=== PATIENT | female | born 1955 | race African-American/Black ===

== ENCOUNTER 2022-04-20 15:04 | Outpatient (REF) | payer OTHER, SELFPAY ==
--- NOTE | ~2022-04-20 | XR_ITS ---
EXAMINATION: XR LUMBOSACRAL SPINE WITH OBLIQUES CLINICAL INFORMATION: Spondylolisthesis. COMPARISON: None TECHNIQUE: AP, both oblique, and lateral (neutral, flexion and extension) views of the lumbar spine. Lateral view of the lumbosacral junction. FINDINGS: There is bony demineralization. There are moderately large Schmorl's nodes of the T9, T10 and T11 lower endplates. At L2-L3 and L3-L4, there is mild posterior disc space narrowing. At L3-L4, there is a 4 mm anterolisthesis. At L4-L5, there is a 3 mm retrolisthesis. At L5-S1, there is a 5 mm anterolisthesis and moderately severe disc space narrowing. No acute fracture or spondylolisthesis is seen. There is multi-level marked lower thoracic and mild lumbar spondylosis. There is multi-level lumbar facet arthropathy. There are aortoiliac atherosclerotic calcifications. XR/XR lumbar spine 6V w bending IMPRESSION: There is multi-level thoracolumbar degenerative disc disease, spondylosis and facet arthropathy. Degenerative disc disease is most pronounced at L5-S1, where it is marked.
--- NOTE | ~2022-04-20 | XR_ITS ---
EXAMINATION: XR BILATERAL HIPS WITH AP PELVIS CLINICAL INFORMATION: Right hip pain. COMPARISON: None TECHNIQUE: AP view of the pelvis and single views of each hip were obtained. FINDINGS: Bony alignment and mineralization are normal. No fracture or dislocation is seen. Sacroiliac and hip joints are normal. Pubic symphysis is normal. There are multiple bilateral calcified buttock granulomas. There are incompletely characterized degenerative changes of the lumbar spine. XR/XR hip BI w PEL1V IMPRESSION: Normal pelvis and hips.
== END 2022-04-20 15:05 | disposition home or self-care (01) ==
LOC: HO.XRAY 15:04
PROVIDERS: PCP Internal Medicine; Visit Provider Nurse Practitioner Family
DX: M47.817 Spondylosis without myelopathy or radiculopathy, lumbosacral region (principal); M25.551 Pain in right hip; M25.552 Pain in left hip; M43.10 Spondylolisthesis, site unspecified
CPT/HCPCS: 72114; 73521; 99202

== ENCOUNTER → 2022-05-11 15:56 | Outpatient (BNVA) | payer OTHER, SELFPAY | PROVIDERS: PCP Internal Medicine; Visit Provider Nurse Practitioner Family | DX: M47.817 Spondylosis without myelopathy or radiculopathy, lumbosacral region (principal); M43.10 Spondylolisthesis, site unspecified; M51.36 Other intervertebral disc degeneration, lumbar region; M53.3 Sacrococcygeal disorders, not elsewhere classified; M25.551 Pain in right hip; M25.552 Pain in left hip | CPT/HCPCS: Q3014 ==

== ENCOUNTER 2022-10-23 15:17 | Outpatient (REF) | payer OTHER, SELFPAY ==
--- NOTE | ~2022-10-23 | XR_ITS ---
EXAMINATION: XR SACROILIAC JOINTS CLINICAL INFORMATION: Sacroiliac disorders, unspecified. COMPARISON: None available. TECHNIQUE: 3 views of the sacroiliac joints FINDINGS: Mild symmetric sclerosis of the SI joints. No clear erosive changes. No asymmetric widening. No acute fractures or subluxation. No significant soft tissue abnormalities. XR/XR sacroiliac joint min 3V IMPRESSION: Mild symmetric sclerosis of the SI joints.
--- NOTE | ~2022-10-23 | XR_ITS ---
EXAMINATION: XR SHOULDER, RIGHT CLINICAL INFORMATION: Pain. COMPARISON: None available. TECHNIQUE: Four views of the right shoulder. FINDINGS: No acute fractures or subluxation. Mild acromioclavicular and glenohumeral degenerative osteoarthritis. No abnormal soft tissue calcifications. Included portions of the right-sided ribs and right lung are within normal limits. XR/XR shoulder RT min 2V IMPRESSION: No acute fractures or subluxation. Mild degenerative osteoarthritis.
== END 2022-10-23 15:18 | disposition home or self-care (01) ==
LOC: HO.XRAY 15:17
PROVIDERS: PCP Internal Medicine; Visit Provider Nurse Practitioner Family
DX: M25.511 Pain in right shoulder (principal); M25.552 Pain in left hip; M53.3 Sacrococcygeal disorders, not elsewhere classified
CPT/HCPCS: 72202; 73030; 99212

== ENCOUNTER 2022-10-23 15:17 | Outpatient (AMB) | payer OTHER, SELFPAY ==
[2022-10-23 15:27] VITALS: BP 147/87; PULSE 95; O2SAT 98; BMI 35.8
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
== END 2022-10-23 15:40 | disposition home or self-care (01) ==
PROVIDERS: PCP Internal Medicine; Visit Provider Nurse Practitioner Family
DX: M25.511 Pain in right shoulder (principal); M53.3 Sacrococcygeal disorders, not elsewhere classified; M25.552 Pain in left hip; M47.817 Spondylosis without myelopathy or radiculopathy, lumbosacral region
CPT/HCPCS: 99214

== ENCOUNTER 2023-01-25 14:16 | Outpatient (AMB) | payer OTHER, SELFPAY ==
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
[2023-01-25 14:24] VITALS: BP 132/84; PULSE 116; O2SAT 98; BMI 37.5
== END 2023-01-25 14:36 | disposition home or self-care (01) ==
PROVIDERS: PCP Internal Medicine; Visit Provider Nurse Practitioner Family
DX: M25.551 Pain in right hip (principal); M25.552 Pain in left hip; M53.3 Sacrococcygeal disorders, not elsewhere classified; M47.817 Spondylosis without myelopathy or radiculopathy, lumbosacral region
CPT/HCPCS: 99213

== ENCOUNTER → 2023-01-25 14:16 | Outpatient (BNVA) | payer OTHER, SELFPAY | PROVIDERS: PCP Nurse Practitioner Family; Visit Provider Nurse Practitioner Family | DX: M25.551 Pain in right hip (principal); M25.552 Pain in left hip; M53.3 Sacrococcygeal disorders, not elsewhere classified; M47.817 Spondylosis without myelopathy or radiculopathy, lumbosacral region | CPT/HCPCS: 99212 ==

== ENCOUNTER 2023-06-07 14:19 | Outpatient (AMB) | payer OTHER, SELFPAY ==
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
[2023-06-07 14:33] VITALS: BP 129/85; PULSE 99; O2SAT 100; BMI 36.6
== END 2023-06-07 15:06 | disposition home or self-care (01) ==
PROVIDERS: PCP Internal Medicine; Visit Provider Nurse Practitioner Family
DX: M25.551 Pain in right hip (principal); M25.552 Pain in left hip; M53.3 Sacrococcygeal disorders, not elsewhere classified; M47.817 Spondylosis without myelopathy or radiculopathy, lumbosacral region; M54.89 Other dorsalgia; Z91.81 History of falling; M25.562 Pain in left knee
CPT/HCPCS: 99214

== ENCOUNTER 2023-06-07 14:19 | Outpatient (REF) | payer OTHER, SELFPAY ==
--- NOTE | ~2023-06-07 | XR_ITS ---
EXAMINATION: XR THORACIC SPINE XR LUMBAR SPINE XR LEFT KNEE CLINICAL INFORMATION: Back pain, spondylosis without myelopathy or radiculopathy. Pain in left knee. COMPARISON: Sacroiliac joint 10/23/2022. Lumbar spine and bilateral hips and pelvis 04/20/2022. TECHNIQUE: 3 views of the thoracic spine. 4 views of the lumbar spine. 5 views of the left knee. FINDINGS: THORACIC SPINE: Levoscoliosis of thoracic spine with advanced degenerative changes and large predominantly anterior and right-sided osteophytes in the edy-ub-aktjn thoracic spine. Apparent superior and inferior endplate concavities at T10, T11 and T12 vertebral bodies of indeterminate age. Degenerative changes on very limited images of the cervical spine could be evaluated with dedicated cervical spine radiographs. LUMBAR SPINE: Slight rightward curvature of the lumbar spine. Mild degenerative changes in the bilateral sacroiliac joints. Advanced multilevel facet arthritis in the gro-zz-qxuht lumbar spine. Moderate multilevel lumbar spondylosis with multilevel loss of disc space height most notable at L5-S1. Grade 1 anterolisthesis of L4 and L5 and L5 on S1. LEFT KNEE: Moderate joint effusion present. Advanced degenerative changes with narrowing of the patellofemoral and lateral compartments and hypertrophic change. XR/XR thoracic spine 3V IMPRESSION: 1. Levoscoliosis of thoracic spine with advanced degenerative changes and large predominantly anterior and right-sided osteophytes in the ciy-zp-wbktb thoracic spine. 2. Apparent superior and inferior endplate concavities at T10, T11 and T12 vertebral bodies of indeterminate age. 3. Moderate multilevel lumbar spondylosis with multilevel loss of disc space height most notable at L5-S1. 4. Advanced multilevel facet arthritis in the bsq-tf-luqmz lumbar spine. 5. Advanced degenerative changes in the lateral and patellofemoral compartments of the left knee.
--- NOTE | ~2023-06-07 | XR_ITS ---
EXAMINATION: XR THORACIC SPINE XR LUMBAR SPINE XR LEFT KNEE CLINICAL INFORMATION: Back pain, spondylosis without myelopathy or radiculopathy. Pain in left knee. COMPARISON: Sacroiliac joint 10/23/2022. Lumbar spine and bilateral hips and pelvis 04/20/2022. TECHNIQUE: 3 views of the thoracic spine. 4 views of the lumbar spine. 5 views of the left knee. FINDINGS: THORACIC SPINE: Levoscoliosis of thoracic spine with advanced degenerative changes and large predominantly anterior and right-sided osteophytes in the vst-rx-icihy thoracic spine. Apparent superior and inferior endplate concavities at T10, T11 and T12 vertebral bodies of indeterminate age. Degenerative changes on very limited images of the cervical spine could be evaluated with dedicated cervical spine radiographs. LUMBAR SPINE: Slight rightward curvature of the lumbar spine. Mild degenerative changes in the bilateral sacroiliac joints. Advanced multilevel facet arthritis in the ajp-qy-oatba lumbar spine. Moderate multilevel lumbar spondylosis with multilevel loss of disc space height most notable at L5-S1. Grade 1 anterolisthesis of L4 and L5 and L5 on S1. LEFT KNEE: Moderate joint effusion present. Advanced degenerative changes with narrowing of the patellofemoral and lateral compartments and hypertrophic change. XR/XR knee LT 3V IMPRESSION: 1. Levoscoliosis of thoracic spine with advanced degenerative changes and large predominantly anterior and right-sided osteophytes in the upz-lc-xijno thoracic spine. 2. Apparent superior and inferior endplate concavities at T10, T11 and T12 vertebral bodies of indeterminate age. 3. Moderate multilevel lumbar spondylosis with multilevel loss of disc space height most notable at L5-S1. 4. Advanced multilevel facet arthritis in the zgy-wt-hzshl lumbar spine. 5. Advanced degenerative changes in the lateral and patellofemoral compartments of the left knee.
--- NOTE | ~2023-06-07 | XR_ITS ---
EXAMINATION: XR THORACIC SPINE XR LUMBAR SPINE XR LEFT KNEE CLINICAL INFORMATION: Back pain, spondylosis without myelopathy or radiculopathy. Pain in left knee. COMPARISON: Sacroiliac joint 10/23/2022. Lumbar spine and bilateral hips and pelvis 04/20/2022. TECHNIQUE: 3 views of the thoracic spine. 4 views of the lumbar spine. 5 views of the left knee. FINDINGS: THORACIC SPINE: Levoscoliosis of thoracic spine with advanced degenerative changes and large predominantly anterior and right-sided osteophytes in the oga-rl-yscub thoracic spine. Apparent superior and inferior endplate concavities at T10, T11 and T12 vertebral bodies of indeterminate age. Degenerative changes on very limited images of the cervical spine could be evaluated with dedicated cervical spine radiographs. LUMBAR SPINE: Slight rightward curvature of the lumbar spine. Mild degenerative changes in the bilateral sacroiliac joints. Advanced multilevel facet arthritis in the tsr-pk-brdnl lumbar spine. Moderate multilevel lumbar spondylosis with multilevel loss of disc space height most notable at L5-S1. Grade 1 anterolisthesis of L4 and L5 and L5 on S1. LEFT KNEE: Moderate joint effusion present. Advanced degenerative changes with narrowing of the patellofemoral and lateral compartments and hypertrophic change. XR/XR lumbar spine 2-3V IMPRESSION: 1. Levoscoliosis of thoracic spine with advanced degenerative changes and large predominantly anterior and right-sided osteophytes in the xec-zr-ezirl thoracic spine. 2. Apparent superior and inferior endplate concavities at T10, T11 and T12 vertebral bodies of indeterminate age. 3. Moderate multilevel lumbar spondylosis with multilevel loss of disc space height most notable at L5-S1. 4. Advanced multilevel facet arthritis in the pra-dt-lzrbz lumbar spine. 5. Advanced degenerative changes in the lateral and patellofemoral compartments of the left knee.
== END 2023-06-07 14:20 | disposition home or self-care (01) ==
LOC: HO.XRAY 14:19
PROVIDERS: PCP Internal Medicine; Visit Provider Nurse Practitioner Family
DX: M47.817 Spondylosis without myelopathy or radiculopathy, lumbosacral region (principal); M53.3 Sacrococcygeal disorders, not elsewhere classified; M54.89 Other dorsalgia; M25.562 Pain in left knee; Z91.81 History of falling
CPT/HCPCS: 72072; 72100; 73562; 99212

== ENCOUNTER 2023-06-12 15:08 | Outpatient (AMB) | payer OTHER, SELFPAY ==
--- NOTE | 2023-06-12 15:11 | HO.NEPHOV ---
Vital Signs 06/12/23 15:12 Height 5 ft 5 in Weight 219 lb 6 oz BMI 36.5 BP 130/80 Blood Pressure Location Lt brachial Position Sitting Pulse 51 Pulse Source Pulse Oximeter Pulse Oximetry (%) 97 Oxygen Delivery Method Room Air Intake Visit Reasons: CKD/ HTN/ Confirmed Design Draftsman Required: No Accompanied by: Self / Same As Patient Allergies sertraline Allergy (Unknown, Verified 06/12/23 15:16) Hallucinations HPI Comments Details: I would the privilege of seeing Elsie in consultation for chronic kidney disease and hypertension. She is known to have cardiac issues including atrial fibrillation. She takes PPI for a long time. She has not known to have any significant proteinuria. She is history of hepatitis-C which was treated long time ago. She has no in skin rashes, epistaxis, orthostasis, palpitations, paroxysmal nocturnal dyspnea, chest pain, pedal edema, froth or foam in the urine. She has no sensorineural deafness, hematuria or history of excessive nonsteroidal anti-inflammatory medication intake. She had BITA during AFib with RVR but has resolved to baseline. She did not have any new systemic complaints at the time of this office visit [facility] Medical History (Updated 06/12/23 @ 15:12 by Dagoberto Gomez MD) Herpes simplex Spondylolisthesis Hyperlipidemia Cervical radiculopathy Tricuspid regurgitation Generalized osteoarthritis of multiple sites Eczema Hepatitis C Depression Hypertension Anxiety Chronic GERD Fatty liver Vertigo Acoustic neuroma Atrial fibrillation Compression fracture of third lumbar vertebra Back pain due to injury [place] (dyspnea on exertion) Dizziness HFrEF (heart failure with reduced ejection fraction) BITA (acute kidney injury) CAD (coronary artery disease) Surgical History History of appendectomy Family History Mother Diabetes Hypertension CAD (coronary artery disease) Social History Alcohol intake: current Alcohol intake frequency: holidays/special occasions only Patient Tobacco Use Status: Never used Tobacco Physical Exam Vital Signs: Last Vital Signs Pulse 51 06/12/23 15:12 BP 130/80 06/12/23 15:12 Pulse Ox 97 06/12/23 15:12 Oxygen Delivery Method Room Air 06/12/23 15:12 BMI result Body Mass Index 36.5 Const General: comfortable and no acute distress Orientation/consciousness: patient oriented x3 HEENT Head: Yes normocephalic Mouth: Normal oral and palatal mucosa present Eyes EOM: EOMs intact bilaterally Neck Neck: Yes supple Resp Auscultation: clear to auscultation bilaterally Cardio Jugular venous distension: no JVD Rate: regular rate GI Palpation (GI): Soft to palpation Auscultation: normal bowel sounds General: Yes no CVA tenderness Back/Spine/Pelvis Back: no CVA tenderness Skin General skin exam: no rashes or lesions noted Neuro General: patient oriented x3 and moves all extremities Extrem General: Yes no pedal edema Results Reviewed Nephrology Results: Hgb 12.0 g/dl (12.0-16.0) 06/12/23 WBC 4.8 X10*3/uL (4.8-10.8) 06/12/23 Plt Count 233 X10*3/uL (160-400) 06/12/23 Sodium 139 mmol/L (135-145) 06/12/23 Potassium 4.1 mmol/L (3.3-5.1) 06/12/23 Chloride 106 mmol/L (96-108) 06/12/23 Carbon Dioxide 26 mmol/L (22-29) 06/12/23 BUN 15 mg/dL (9-16) 06/12/23 Creatinine 1.23 mg/dL (0.5-1.4) 06/12/23 Calcium 9.0 mg/dL (8.4-10.2) 06/12/23 PTH Intact 83.0 pg/mL (8.7-77.1) H 06/12/23 Assessment & Plan Assessment & Plan (1) CKD (chronic kidney disease) stage 3, GFR 30-59 ml/min: Code(s): N18.30 - Chronic kidney disease, stage 3 unspecified Category: Medical Qualifiers: Chronic kidney disease stage 3 subtype: stage 3a (GFR 45-59) Qualified Code(s): N18.31 - Chronic kidney disease, stage 3a (2) Hypertension: Code(s): I10 - Essential (primary) hypertension Category: Medical Qualifiers: Hypertension type: primary hypertension Qualified Code(s): I10 - Essential (primary) hypertension Plan Elsie has CKD for a long time. She got up BITA when she had AFib with a RVR. Her serum creatinine has settled to baseline. She most likely has vascular disease. Her blood pressure is currently at goal. I have ordered extensive workup including imaging studies, serology and immunology. There is no indication for any renal biopsy now. She maintains good hydration. She avoids nonsteroidal anti-inflammatories. I did not make any medication changes at this office visit. More than 50% time spent discussing about etiologies of CKD, hypertension and management strategies. Time spent retrieving data, patient encounter and documentation 52 minutes. Answered all questions. Follow-up appointment given. Orders: Orders Creatinine 06/12/23 N18.31 - Chronic kidney disease, stage 3a, I10 - Essential (primary) hypertension Anti DNA DS Antibody 06/12/23 N110.26 - Chronic kidney disease, stage 3a, I10 - Essential (primary) hypertension Myeloperoxidase Antibody 06/12/23 - Chronic kidney disease, stage 3a, I10 - Essential (primary) hypertension Proteinase 3 PR3 Antibodies 06/12/23 - Chronic kidney disease, stage 3a, I10 - Essential (primary) hypertension Immunofixation Pnl, Serum 06/12/23 N18 - Chronic kidney disease, stage 3a, I10 - Essential (primary) hypertension Complement C4 06/12/23 N18. - Chronic kidney disease, stage 3a, I10 - Essential (primary) hypertension US renal BI 06/12/23 N18.31 - Chronic kidney disease, stage 3a, I10 - Essential (primary) hypertension US renal doppler 06/12/23 N18 - Chronic kidney disease, stage 3a, I10 - Essential (primary) hypertension Parathyroid Hormone Intact 06/12/23 N18.31 - Chronic kidney disease, stage 3a, I10 - Essential (primary) hypertension Electrolytes 06/12/23 N18.31 - Chronic kidney disease, stage 3a, I10 - Essential (primary) hypertension Calcium 06/12/23 N18. - Chronic kidney disease, stage 3a, I10 - Essential (primary) hypertension Blood Urea Nitrogen 06/12/23 N18. - Chronic kidney disease, stage 3a, I10 - Essential (primary) hypertension Complete Blood Count Auto Diff 06/12/23 N18. - Chronic kidney disease, stage 3a, I10 - Essential (primary) hypertension Complement C3 04/16/24 N18.31 - Chronic kidney disease, stage 3a, I10 - Essential (primary) hypertension Coding Level of Care Code New Pt Level 4 (90239) Diagnoses Stage 3a chronic kidney disease N18.31 Chronic kidney disease stage 3 subtype: stage 3a (GFR 45-59) Primary hypertension I10 Hypertension type: primary hypertension
[2023-06-12 15:12] VITALS: BP 130/80; PULSE 51; O2SAT 97; BMI 36.5
== END 2023-06-12 15:59 | disposition home or self-care (01) ==
LOC: HO.HKAS 15:08
PROVIDERS: PCP Internal Medicine; Visit Provider Internal Medicine Nephrology
DX: N18.31 Chronic kidney disease, stage 3a (principal); I10 Essential (primary) hypertension
CPT/HCPCS: 99204

== ENCOUNTER 2023-06-12 15:08 | Outpatient (REF) | payer OTHER, SELFPAY ==
[2023-06-12 18:54] LABS: MANUAL DIFF FLAG NO
[2023-06-12 19:22] LABS: Basophils Percent Auto 0.8 % (0-2); Eosinophils Absolute Auto 0.2 X10*3/uL (0.0-0.4); Eosinophils Percent Auto 3.7 % (0-4); Hematocrit 38.2 % (37.0-47.0); Imm Gran Abs Auto 0.01 X10*3/uL (0.00-0.03); Imm Gran Pct Auto 0.2 % (0.0-0.4); Lymphocytes Absolute Auto 1.8 X10*3/uL (1.2-4.9); Mean Corpuscular HGB Conc 31.4 g/dl (31.0-35.0); Mean Corpuscular Hemoglobin 26.3 pg (27.0-33.0); Mean Corpuscular Volume 83.6 fL (80.0-98.0); Mean Platelet Volume 12.6 fL (9.4-12.3); Monocytes Absolute Auto 0.4 X10*3/uL (0.1-1.2); Monocytes Percent Auto 7.3 % (2-11); Neutrophils Absolute Auto 2.4 x10*3/uL (2.0-8.3); Platelet Count 233 X10*3/uL (160-400); Red Blood Count 4.57 X10*6/uL (4.20-5.50); Red Cell Distribution Width 15.2 % (11.0-16.0); White Blood Count 4.8 X10*3/uL (4.8-10.8)
[2023-06-12 20:06] LABS: Anion Gap 11 (12-20); Blood Urea Nitrogen 15 mg/dL (9-16); Carbon Dioxide 26 mmol/L (22-29); Chloride 106 mmol/L (96-108); Estimated Glomerular Filt Rate 44; Potassium 4.1 mmol/L (3.3-5.1); Sodium 139 mmol/L (135-145)
[2023-06-14 13:33] LABS: Anti DNA DS Antibody 1 IU/mL; Myeloperoxidase Antibody <1.0 AI; Proteinase 3 PR3 Antibodies <1.0 AI
[2023-06-14 14:38] LABS: Complement C3 91 mg/dL (83-193)
[2023-06-15 14:24] LABS: IgA 152 mg/dL (70-320); IgG 2525 mg/dL (600-1540); IgM 53 mg/dL (50-300)
== END 2023-06-12 15:09 | disposition home or self-care (01) ==
LOC: CF 15:08
PROVIDERS: PCP Internal Medicine; Visit Provider Internal Medicine Nephrology
DX: I12.9 Hypertensive chronic kidney disease with stage 1 through stage 4 chronic kidney disease, or unspecified chronic kidney disease (principal); N18.31 Chronic kidney disease, stage 3a
CPT/HCPCS: 36415; 80051; 82310; 82565; 82784; 83970; 84520; 85025; 86021; 86160; 86225; 86334; 99202

== ENCOUNTER 2023-07-20 09:43 | Outpatient (REF) | payer OTHER, SELFPAY ==
--- NOTE | ~2023-07-20 | US_ITS ---
EXAMINATION: ULTRASOUND RENAL WITH DOPPLER CLINICAL INFORMATION: Chronic kidney disease COMPARISON: None. TECHNIQUE: Real-time grayscale, color Doppler, and duplex Doppler evaluation of the kidneys and renal vasculature was performed. FINDINGS: RENAL MEASUREMENTS: Right: 9.6 x 3.9 x 6.2 cm (Sag x AP x TV) there are 2 simple cysts which do not require follow-up. Left: 9.6 x 5.9 x 5.7 cm (Sag x AP x TV) there are a few calcifications within the parenchyma, possibly vascular. There is a 1.7 cm mid pole simple cyst which does not require follow-up. The renal parenchyma appears normal. No hydronephrosis or nephrolithiasis. DOPPLER INTERROGATION: Aorta: 91 cm/sec Right Main Renal Artery: Proximal: 109 cm/sec Mid: 136 cm/sec Distal: 90 cm/sec Left Main Renal Artery: Proximal: 128 cm/sec Mid: 63 cm/sec Distal: 124 cm/sec Renal-Aortic Ratio (RAR): Right: 1.49 Left: 1.41 US/US renal BI IMPRESSION: No evidence of renal artery stenosis.
--- NOTE | ~2023-07-20 | US_ITS ---
EXAMINATION: ULTRASOUND RENAL WITH DOPPLER CLINICAL INFORMATION: Chronic kidney disease COMPARISON: None. TECHNIQUE: Real-time grayscale, color Doppler, and duplex Doppler evaluation of the kidneys and renal vasculature was performed. FINDINGS: RENAL MEASUREMENTS: Right: 9.6 x 3.9 x 6.2 cm (Sag x AP x TV) there are 2 simple cysts which do not require follow-up. Left: 9.6 x 5.9 x 5.7 cm (Sag x AP x TV) there are a few calcifications within the parenchyma, possibly vascular. There is a 1.7 cm mid pole simple cyst which does not require follow-up. The renal parenchyma appears normal. No hydronephrosis or nephrolithiasis. DOPPLER INTERROGATION: Aorta: 91 cm/sec Right Main Renal Artery: Proximal: 109 cm/sec Mid: 136 cm/sec Distal: 90 cm/sec Left Main Renal Artery: Proximal: 128 cm/sec Mid: 63 cm/sec Distal: 124 cm/sec Renal-Aortic Ratio (RAR): Right: 1.49 Left: 1.41 US/US renal doppler IMPRESSION: No evidence of renal artery stenosis.
== END 2023-07-20 09:44 | disposition home or self-care (01) ==
LOC: HO.HMGCX 09:43
PROVIDERS: PCP Internal Medicine; Visit Provider Internal Medicine Nephrology
DX: I12.9 Hypertensive chronic kidney disease with stage 1 through stage 4 chronic kidney disease, or unspecified chronic kidney disease (principal); N18.31 Chronic kidney disease, stage 3a
CPT/HCPCS: 76775; 93975

== ENCOUNTER 2023-08-29 14:00 | Outpatient (RCR) | payer OTHER, SELFPAY ==
--- NOTE | 2023-07-11 14:53 | MHC.PT.EP ---
[facility] [place] Office [place] Office [place] Office [address] Lina Poole [address] [phone] F: [phone] F: [phone] F: [phone] F: [phone] Physical Therapy Plan of Care Date of Evaluation: 07/11/23 Date of Surgery: Diagnosis: pain in L knee, balance and gait abnormalities Assessment: Patient is a 68 year old R handed female who presents with s/s consistent with L knee pain, balance and gait abnormalities. She does not work and is disabled. Patient past medical history includes AFib, Hepatitis, Herpes, depression, anxiety and vertigo. Current impairments include pain, balance, gait mechanics, ROM, strength, activity tolerance and functional mobility. Functional limitations include decreased ability to stand, walk, squat, bend, lift, transfer, and negotiate stairs. Patient is motivated with good rehab potential. Skilled PT will address impairments and functional limitations in order to achieve goals. Frequency and Duration: The patient will be seen 2x/week for 5 weeks Short Term Goals: I with HEP - 2 weeks Able to walk 10 minutes without a rest - 3 weeks gastroc and HS tightness min - 3 weeks Group Home Goals: SLB > 10 seconds b/l - 5 weeks Max pain with ADLs 2/10 - 5 weeks Strength 4+/5 grossly - 5 weeks AROM 0-120 on L knee - 5 weeks Treatment Plan: Modalities to reduce pain, spasms and effusion. Manual therapy to restore motion and function. Therapeutic exercise to improve strength and flexibility. Neuromuscular re-education for posture and balance. Therapeutic activities to return to functional activities of daily living. Electronically signed by: Yassine Gonzalez, PT Please sign and return to therapist. Thank you for your referral.
--- NOTE | 2023-10-18 14:45 | MHC.PT.DC ---
[facility] [place] Office [place] Office [place] Office [address] Lina Poole 140 [facility] [phone] F: [phone] F: [phone] F: [phone] F: [phone] Physical Therapy Discharge Report Diagnosis: pain in L knee, balance and gait abnormalities Date of Surgery: Date of Evaluation: 07/11/23 Date of Discharge: 10/18/23 Treatments to Date: 9 Cancellations to Date: 0 No Shows to Date: 0 Discharge Status: Achieved Goals Improved Function Independent with HEP Discharge Summary: Pt has made good progress in PT and has met goals. Appropriate for d/c to I HEP. Electronically signed by: Anita Bryant PT Please sign and return to therapist. Thank you for your referral.
== END 2023-10-18 14:45 | disposition home or self-care (01) ==
LOC: HO.PTCHIC 14:00
PROVIDERS: PCP Internal Medicine; Visit Provider Nurse Practitioner Family
DX: M25.562 Pain in left knee (principal); M54.89 Other dorsalgia; Z91.81 History of falling
CPT/HCPCS: 97110; 97112; 97163

== ENCOUNTER 2023-09-11 14:38 | Outpatient (AMB) | payer OTHER, SELFPAY ==
[2023-09-11 14:48] VITALS: BP 124/82; PULSE 84; O2SAT 98; BMI 37.4
--- NOTE | 2023-09-11 14:48 | HO.NEPHOV ---
Vital Signs 09/11/23 14:48 Height 5 ft 5 in Weight 225 lb BMI 37.4 BP 124/82 Blood Pressure Location Lt brachial Position Sitting Pulse 84 Pulse Source Pulse Oximeter Pulse Oximetry (%) 98 Oxygen Delivery Method Room Air Intake Visit Reasons: 3 mon follow up/ Conf Drawstring Knotter Required: No Accompanied by: Self / Same As Patient Allergies sertraline Allergy (Unknown, Verified 09/11/23 14:51) Hallucinations HPI Comments Details: I would the privilege of seeing Elsie in follow up for chronic kidney disease and hypertension. She is known to have cardiac issues including atrial fibrillation. She takes PPI for a long time. She has not known to have any significant proteinuria. She is history of hepatitis-C which was treated long time ago. She has no in skin rashes, epistaxis, orthostasis, palpitations, paroxysmal nocturnal dyspnea, chest pain, pedal edema, froth or foam in the urine. She has no sensorineural deafness, hematuria or history of excessive nonsteroidal anti-inflammatory medication intake. She had BITA during AFib with RVR but has resolved to baseline. She did not have any new systemic complaints at the time of this office visit [facility] Medical History (Updated 09/11/23 @ 15:15 by Dagoberto Gomez MD) Herpes simplex Spondylolisthesis Hyperlipidemia Cervical radiculopathy Tricuspid regurgitation Generalized osteoarthritis of multiple sites Eczema Hepatitis C Depression Hypertension Anxiety Chronic GERD Fatty liver Vertigo Acoustic neuroma Atrial fibrillation Compression fracture of third lumbar vertebra Back pain due to injury [place] (dyspnea on exertion) Dizziness HFrEF (heart failure with reduced ejection fraction) BITA (acute kidney injury) CAD (coronary artery disease) Surgical History History of appendectomy Family History Mother Diabetes Hypertension CAD (coronary artery disease) Social History Alcohol intake: current Alcohol intake frequency: holidays/special occasions only Patient Tobacco Use Status: Never used Tobacco Review of Systems Const All systems reviewed & are unremarkable except as noted in HPI and below Physical Exam Vital Signs: Last Vital Signs Pulse 84 09/11/23 14:48 BP 124/82 09/11/23 14:48 Pulse Ox 98 09/11/23 14:48 Oxygen Delivery Method Room Air 09/11/23 14:48 BMI result Body Mass Index 37.4 Const General: comfortable and no acute distress Orientation/consciousness: patient oriented x3 HEENT Head: Yes normocephalic Mouth: Normal oral and palatal mucosa present Eyes EOM: EOMs intact bilaterally Neck Neck: Yes supple Resp Auscultation: clear to auscultation bilaterally Cardio Jugular venous distension: no JVD Rate: regular rate GI Palpation (GI): Soft to palpation Auscultation: normal bowel sounds General: Yes no CVA tenderness Back/Spine/Pelvis Back: no CVA tenderness Skin General skin exam: no rashes or lesions noted Neuro General: patient oriented x3 and moves all extremities Extrem General: Yes no pedal edema Results Reviewed Nephrology Results: Hgb 12.0 g/dl (12.0-16.0) 06/12/23 WBC 4.8 X10*3/uL (4.8-10.8) 06/12/23 Plt Count 233 X10*3/uL (160-400) 06/12/23 Sodium 139 mmol/L (135-145) 06/12/23 Potassium 4.1 mmol/L (3.3-5.1) 06/12/23 Chloride 106 mmol/L (96-108) 06/12/23 Carbon Dioxide 26 mmol/L (22-29) 06/12/23 BUN 15 mg/dL (9-16) 06/12/23 Creatinine 1.23 mg/dL (0.5-1.4) 06/12/23 Calcium 9.0 mg/dL (8.4-10.2) 06/12/23 PTH Intact 83.0 pg/mL (8.7-77.1) H 06/12/23 Renal US 07/20/23 Assessment & Plan Assessment & Plan (1) CKD (chronic kidney disease) stage 3, GFR 30-59 ml/min: Code(s): N18.30 - Chronic kidney disease, stage 3 unspecified Category: Medical Qualifiers: Chronic kidney disease stage 3 subtype: stage 3a (GFR 45-59) Qualified Code(s): N18.31 - Chronic kidney disease, stage 3a (2) Hypertension: Code(s): I10 - Essential (primary) hypertension Category: Medical Qualifiers: Hypertension type: primary hypertension Qualified Code(s): I10 - Essential (primary) hypertension (3) Renal cyst: Code(s): N28.1 - Cyst of kidney, acquired Category: Medical Plan Elsie has CKD for a long time. She had BITA in the past when she had AFib with a RVR. Her serum creatinine has settled to baseline. She most likely has vascular disease. Her blood pressure is currently at goal. Her Ig G levels were high which I repeated. Renal USS showed renal cysts and there was no KIM. There is no indication for any renal biopsy now. She maintains good hydration. She avoids nonsteroidal anti-inflammatories. I did not make any medication changes at this office visit. More than 50% time spent discussing about etiologies of CKD, hypertension and management strategies. Answered all questions. Follow-up appointment given. Orders: Orders Immunofixation Pnl, Serum Today I10 - Essential (primary) hypertension, N18.31 - Chronic kidney disease, stage 3a, N28.1 - Cyst of kidney, acquired Immunofixation, Random Urine Today I10 - Essential (primary) hypertension, N18.31 - Chronic kidney disease, stage 3a, N28.1 - Cyst of kidney, acquired Blood Urea Nitrogen Today I10 - Essential (primary) hypertension, N18.31 - Chronic kidney disease, stage 3a, N28.1 - Cyst of kidney, acquired Electrolytes Today I10 - Essential (primary) hypertension, N18.31 - Chronic kidney disease, stage 3a, N28.1 - Cyst of kidney, acquired Calcium Today I10 - Essential (primary) hypertension, N18.31 - Chronic kidney disease, stage 3a, N28.1 - Cyst of kidney, acquired Creatinine Today I10 - Essential (primary) hypertension, N18.31 - Chronic kidney disease, stage 3a, N28.1 - Cyst of kidney, acquired Coding Level of Care Code Est Pt Level 4 (84092) Diagnoses Stage 3a chronic kidney disease N18.31 Chronic kidney disease stage 3 subtype: stage 3a (GFR 45-59) Primary hypertension I10 Hypertension type: primary hypertension Renal cyst N28.1
== END 2023-09-11 15:19 | disposition home or self-care (01) ==
PROVIDERS: PCP Internal Medicine; Visit Provider Internal Medicine Nephrology
DX: N18.31 Chronic kidney disease, stage 3a (principal); I10 Essential (primary) hypertension; N28.1 Cyst of kidney, acquired
CPT/HCPCS: 99214

== ENCOUNTER → 2023-09-11 14:38 | Outpatient (BNVA) | payer OTHER, SELFPAY | PROVIDERS: PCP Internal Medicine; Visit Provider Internal Medicine Nephrology | DX: I12.9 Hypertensive chronic kidney disease with stage 1 through stage 4 chronic kidney disease, or unspecified chronic kidney disease (principal); N18.31 Chronic kidney disease, stage 3a; N28.1 Cyst of kidney, acquired | CPT/HCPCS: 99212 ==

== ENCOUNTER 2024-03-06 13:49 | Outpatient (AMB) | payer OTHER, SELFPAY ==
[2024-03-06 14:10] VITALS: BP 138/80; PULSE 90; O2SAT 96; BMI 38.5
--- NOTE | 2024-03-06 14:10 | HO.NEPHOV ---
Vital Signs 03/06/24 14:10 Height 5 ft 5 in Weight 231 lb 4 oz BMI 38.5 BP 138/80 Blood Pressure Location Lt brachial Position Sitting Pulse 90 Pulse Source Pulse Oximeter Pulse Oximetry (%) 96 Oxygen Delivery Method Room Air Intake Visit Reasons: 6 mon follow up-Conf Waste Machine Operator Required: No Accompanied by: Self / Same As Patient Allergies sertraline Allergy (Unknown, Verified 03/06/24 14:10) Hallucinations HPI Comments Details: Elsie was seen in follow up for chronic kidney disease and hypertension. She monitors her BP at home and is at goal. She is known to have cardiac issues including atrial fibrillation. She takes PPI for a long time. She has not known to have any significant proteinuria. She is history of hepatitis-C which was treated long time ago. She has no in skin rashes, epistaxis, orthostasis, palpitations, paroxysmal nocturnal dyspnea, chest pain, pedal edema, froth or foam in the urine. She has no sensorineural deafness, hematuria or history of excessive nonsteroidal anti-inflammatory medication intake. She had BITA during AFib with RVR but has resolved to baseline. She did not have any new systemic complaints at the time of this office visit [facility] Medical History (Updated 03/06/24 @ 14:17 by Dagoberto Gomez MD) Herpes simplex Spondylolisthesis Hyperlipidemia Cervical radiculopathy Tricuspid regurgitation Generalized osteoarthritis of multiple sites Eczema Hepatitis C Depression Hypertension Anxiety Chronic GERD Fatty liver Vertigo Acoustic neuroma Atrial fibrillation Compression fracture of third lumbar vertebra Back pain due to injury [place] (dyspnea on exertion) Dizziness HFrEF (heart failure with reduced ejection fraction) BITA (acute kidney injury) CAD (coronary artery disease) Surgical History History of appendectomy Family History Mother Diabetes Hypertension CAD (coronary artery disease) Social History Alcohol intake: current Alcohol intake frequency: holidays/special occasions only Patient Tobacco Use Status: Never used Tobacco Review of Systems Const All systems reviewed & are unremarkable except as noted in HPI and below Physical Exam Vital Signs: Last Vital Signs Pulse 90 03/06/24 14:10 BP 138/80 03/06/24 14:10 Pulse Ox 96 03/06/24 14:10 Oxygen Delivery Method Room Air 03/06/24 14:10 BMI result Body Mass Index 38.5 Const General: comfortable and no acute distress Orientation/consciousness: patient oriented x3 HEENT Head: Yes normocephalic Mouth: Normal oral and palatal mucosa present Eyes EOM: EOMs intact bilaterally Neck Neck: Yes supple Resp Auscultation: clear to auscultation bilaterally Cardio Jugular venous distension: no JVD Rate: regular rate GI Palpation (GI): Soft to palpation Auscultation: normal bowel sounds General: Yes no CVA tenderness Back/Spine/Pelvis Back: no CVA tenderness Skin General skin exam: no rashes or lesions noted Neuro General: patient oriented x3 and moves all extremities Extrem General: Yes no pedal edema Assessment & Plan Assessment & Plan (1) Renal cyst: Code(s): N28.1 - Cyst of kidney, acquired Category: Medical (2) Hypertension: Code(s): I10 - Essential (primary) hypertension Category: Medical Qualifiers: Hypertension type: primary hypertension Qualified Code(s): I10 - Essential (primary) hypertension (3) CKD (chronic kidney disease) stage 3, GFR 30-59 ml/min: Code(s): N18.30 - Chronic kidney disease, stage 3 unspecified Category: Medical Qualifiers: Chronic kidney disease stage 3 subtype: stage 3a (GFR 45-59) Qualified Code(s): N18.31 - Chronic kidney disease, stage 3a (4) Paraproteinemia: Code(s): D89.2 - Hypergammaglobulinemia, unspecified Category: Medical Plan Elsie has CKD for a long time. She had BITA in the past when she had AFib with a RVR. Her serum creatinine has settled to baseline. She most likely has vascular disease. Her blood pressure is currently at goal. Her Ig G levels were high for which I did a Heme consult . Renal USS showed renal cysts and there was no KIM. There is no indication for any renal biopsy now. She maintains good hydration. She avoids nonsteroidal anti-inflammatories. I did not make any medication changes at this office visit. Answered all questions. Orders: Orders Blood Urea Nitrogen 6 Months D89.2 - Hypergammaglobulinemia, unspecified, I10 - Essential (primary) hypertension, N18.31 - Chronic kidney disease, stage 3a, N28.1 - Cyst of kidney, acquired Electrolytes 6 Months D89.2 - Hypergammaglobulinemia, unspecified, I10 - Essential (primary) hypertension, N18.31 - Chronic kidney disease, stage 3a, N28.1 - Cyst of kidney, acquired Calcium 6 Months D89.2 - Hypergammaglobulinemia, unspecified, I10 - Essential (primary) hypertension, N18.31 - Chronic kidney disease, stage 3a, N28.1 - Cyst of kidney, acquired Immunofixation, Random Urine 6 Months D89.2 - Hypergammaglobulinemia, unspecified Protein Creatinine Ratio, Ur Today D89.2 - Hypergammaglobulinemia, unspecified Creatinine 6 Months D89.2 - Hypergammaglobulinemia, unspecified, I10 - Essential (primary) hypertension, N18.31 - Chronic kidney disease, stage 3a, N28.1 - Cyst of kidney, acquired Referrals Hematology & Oncology Referral D89.2 - Hypergammaglobulinemia, unspecified Coding Level of Care Code Est Pt Level 4 (23492) Diagnoses Renal cyst N28.1 Primary hypertension I10 Hypertension type: primary hypertension Stage 3a chronic kidney disease N18.31 Chronic kidney disease stage 3 subtype: stage 3a (GFR 45-59) Paraproteinemia D89.2
--- OUTSIDE RECORDS SUMMARY | 2024-03-06 14:58 | XMS_ITS ---
Author Organization [facility], Address [address] [place] [address] Care Team Providers Care Structural Worker Name Role Phone Akanksha Haynes Unavailable [phone] ALLERGIES, ADVERSE REACTIONS, ALERTS Substance Code Code System Type Reaction Severity Status Start Date End Date sertraline 96469 RxNorm Drug allergy () 0 MEDICATIONS Medication Code Code System Start Date Stop Date Route Dosage Directions Fill Instructions ASPIRIN 81 MG CHEWABLE TABLET RxNorm 07/27/19 23 1 CALCIUM 600 MG-VIT D3 10MCG TB RxNorm [address] 30 MG CAP RxNorm 06/22/19 23 FLUTICASONE PROP 50 MCG SPRAY RxNorm 06/22/19 23 FUROSEMIDE 20 MG TABLET RxNorm 06/22/19 23 LISINOPRIL 5 MG TABLET RxNorm 06/22/19 23 METOPROLOL SUCC ER 100 MG TAB RxNorm 06/22/[address] 40 MG TAB RxNorm 06/22/19 23 SUCRALFATE 1 GM TABLET RxNorm 06/22/19 23 TIZANIDINE HCL 4 MG TABLET RxNorm 07/27/19 23 1 XARELTO 20 MG TABLET RxNorm 06/22/19 23 cyclobenzaprine 0 RxNorm oral meclizine 0 RxNorm oral celecoxib 0 RxNorm oral baclofen 064049 RxNorm 3 oral 1 PROBLEMS Problem Name Code Code System Start Date End Date Stat us Other chronic pain 47384263 [facility] A ctive Essential (primary) hypertension 74331207 [facility] Active Other specified arthritis, unspecified site 8815386 [facility] Active Anxiety disorder, unspecified 85953891 [facility] Active Low back pain, unspecified 384195934 [facility] 08/30/2022 Active ENCOUNTERS Encounter Diagnosis Code Code System Date Stat Low back pain, unspecified 100982591 [facility] 08/30/2022 Active IMMUNIZATIONS * None VITAL SIGNS Code Code System Vitals Name Date Value and Un its 8462-4 [facility] Blood Pressure-Diastolic 08/30/2022 76 mmHg 8480-6 [facility] Blood Pressure-Systolic 08/30/2022 1 21 mmHg 8867-4 [facility] Heart Rate 08/30/2022 86 /min 9279-1 [facility] Respiratory Rate 08/30/2022 16 /min 8310-5 [facility] Body Temperature 08/30/2022 98.1 F 62500-6 inc Oxygen Saturation 08/30/2022 96 % SOCIAL HISTORY * None PROCEDURES * None MEDICAL EQUIPMENT * Patient has no history of implantable devices ASSESSMENT Assessment You were evaluated for lower back pain.Your symptoms are consistent with a lower back strain/spasmBACK CAREYou can use Tylenol (acetaminophen) 650 mg every 6 hrs as needed for pain. Do not take more than 3000 mg in one day!Use intermittent heat 4 or 5 times a day, 20 minutes at a time, for a few days.You may use topical therapy such as IcyHot with Lidocaine or Aspercream with Lidocaine, both of which are available over the counter.Do not perform any heavy lifting.Go immediately to the Emergency Department if you develop any increased or uncontrolled pain, numbness, tingling, or weakness of the extremities, difficulty urinating or passing stools.Take the muscle relaxer as needed for pain not responding to the Tylenol and other topical therapies. Do not drive or consume alcohol while taking this.Please see your doctor or an orthopedist if not improving over the next 1-2 weeks. TREATMENT PLAN Type Description Date MEDICATION Take 5 mg tablet 08/30/2022 APPOINTMENT If not feeling ericka r in 3 day(s), please see your primary care physician. If you do not have a primary care physician, please return to this clinic. 08/30/2022 Lab Tests None GOALS * None HEALTH CONCERNS * No Health Concerns FUNCTIONAL AND COGNITIVE STATUS * None CONSULTATION NOTES * None DISCHARGE SUMMARY NOTES * None HISTORY AND PHYSICAL NOTES * None IMAGING NOTES * None LABORATORY REPORT NARRATIVE NOTES * None PATHOLOGY REPORT NARRATIVE NOTES * None PROGRESS NOTES * None
== END 2024-03-06 14:29 | disposition home or self-care (01) ==
PROVIDERS: PCP Internal Medicine; Visit Provider Internal Medicine Nephrology
DX: N28.1 Cyst of kidney, acquired (principal); I10 Essential (primary) hypertension; N18.31 Chronic kidney disease, stage 3a; D89.2 Hypergammaglobulinemia, unspecified
CPT/HCPCS: 99214

== ENCOUNTER 2024-03-06 13:49 | Outpatient (REF) | payer OTHER, SELFPAY ==
--- OUTSIDE RECORDS SUMMARY | 2024-03-06 15:01 | XMS_ITS ---
Author Organization [facility], Address [address] [place] [address] Care Team Providers Care Coal Loader Name Role Phone Akanksha Haynes Unavailable [phone] ALLERGIES, ADVERSE REACTIONS, ALERTS Substance Code Code System Type Reaction Severity Status Start Date End Date sertraline 52364 RxNorm Drug allergy () 0 MEDICATIONS Medication [...] RxNorm oral celecoxib 0 RxNorm oral baclofen 988234 RxNorm 3 oral 1 PROBLEMS Problem Name Code Code System Start Date End Date Stat us Other chronic pain 79894531 [facility] A [facility]ive Essential (primary) hypertension 70289569 [facility] Active Other specified arthritis, unspecified site 1795586 [facility] Active Anxiety disorder, unspecified 40669441 [facility] Active Low back pain, unspecified 222369209 [facility] 08/30/2022 Active ENCOUNTERS Encounter Diagnosis Code Code System Date Stat Low back pain, unspecified 584600615 [facility] 08/30/2022 Active IMMUNIZATIONS * None VITAL SIGNS Code Code System Vitals Name Date Value and Un its 8462-4 [facility] Blood Pressure-Diastolic 08/30/2022 76 mmHg 8480-6 [facility] Blood Pressure-Systolic 08/30/2022 1 21 mmHg 8867-4 [facility] Heart Rate 08/30/2022 86 /min 9279-1 [facility] Respiratory Rate 08/30/2022 16 /min 8310-5 [facility] Body Temperature 08/30/2022 98.1 F 55897-4 inc Oxygen Saturation 08/30/2022 96 % SOCIAL [...]
[2024-03-06 18:27] LABS: Anion Gap 11 (12-20); Blood Urea Nitrogen 20 mg/dL (9-16); Calcium 9.7 mg/dL (8.4-10.2); Carbon Dioxide 27 mmol/L (22-29); Chloride 106 mmol/L (96-108); Estimated Glomerular Filt Rate 50; Potassium 4.2 mmol/L (3.3-5.1); Sodium 140 mmol/L (135-145)
[2024-03-12 09:48] LABS: IgA 143 mg/dL (70-320); IgG 2545 mg/dL (600-1540); IgM 36 mg/dL (50-300)
== END 2024-03-06 13:50 | disposition home or self-care (01) ==
LOC: HO.HKASLDS 13:49
PROVIDERS: PCP Internal Medicine; Visit Provider Internal Medicine Nephrology
DX: I12.9 Hypertensive chronic kidney disease with stage 1 through stage 4 chronic kidney disease, or unspecified chronic kidney disease (principal); N18.31 Chronic kidney disease, stage 3a; N28.1 Cyst of kidney, acquired
CPT/HCPCS: 80051; 82310; 82565; 82784; 84520; 86334; 86335; 99212

== ENCOUNTER → 2024-04-07 15:08 | Outpatient (BNV) | payer OTHER, SELFPAY | PROVIDERS: PCP Internal Medicine; Visit Provider Internal Medicine Medical Oncology | DX: D47.2 Monoclonal gammopathy (principal) | CPT/HCPCS: 99204 ==

== ENCOUNTER 2024-09-04 13:29 | Outpatient (REF) | payer OTHER, SELFPAY ==
[2024-09-04 17:44] LABS: MANUAL DIFF FLAG NO
[2024-09-04 17:56] LABS: Anion Gap 11 (12-20); Blood Urea Nitrogen 17 mg/dL (9-16); Calcium 9.2 mg/dL (8.4-10.2); Carbon Dioxide 27 mmol/L (22-29); Chloride 104 mmol/L (96-108); Estimated Glomerular Filt Rate 41; Potassium 3.7 mmol/L (3.3-5.1); Sodium 138 mmol/L (135-145)
[2024-09-04 18:04] LABS: Hematocrit 34.4 % (37.0-47.0); Hemoglobin 10.6 g/dl (12.0-16.0); Imm Gran Abs Auto 0.02 X10*3/uL (0.00-0.03); Imm Gran Pct Auto 0.3 % (0.0-0.4); Lymphocytes Absolute Auto 1.6 X10*3/uL (1.2-4.9); Mean Corpuscular HGB Conc 30.8 g/dl (31.0-35.0); Mean Corpuscular Hemoglobin 26.0 pg (27.0-33.0); Mean Corpuscular Volume 84.3 fL (80.0-98.0); NRBC Abs Auto 0.000 X10*3/uL (0.0-0.012); NRBC Pct Auto 0.0 /100WBC (0.0-0.2); Platelet Count 202 X10*3/uL (160-400); Red Blood Count 4.08 X10*6/uL (4.20-5.50); White Blood Count 6.0 X10*3/uL (4.8-10.8)
[2024-09-05 18:43] LABS: PES - Abn Protein Band 1 1.4 g/dL (NONE DETECTED); Prot Elec - Albumin 4.1 g/dL (3.8-4.8); Prot Elec - Alpha1 0.2 g/dL (0.2-0.3); Prot Elec - Alpha2 0.7 g/dL (0.5-0.9); Prot Elec - Beta 1 0.4 g/dL (0.4-0.6); Prot Elec - Beta 2 0.3 g/dL (0.2-0.5); Prot Elec - Gamma 2.2 g/dL (0.8-1.7); Prot Elec - Total Protein 7.9 g/dL (6.1-8.1)
== END 2024-09-04 13:30 | disposition home or self-care (01) ==
LOC: HO.HKASLDS 13:29
PROVIDERS: PCP Internal Medicine; Visit Provider Internal Medicine Nephrology
DX: I12.9 Hypertensive chronic kidney disease with stage 1 through stage 4 chronic kidney disease, or unspecified chronic kidney disease (principal); N18.31 Chronic kidney disease, stage 3a; N28.1 Cyst of kidney, acquired; D47.2 Monoclonal gammopathy
CPT/HCPCS: 36415; 80051; 82310; 82565; 84165; 84520; 85025; 86335; 99212

== ENCOUNTER 2024-09-04 13:29 | Outpatient (AMB) | payer OTHER, SELFPAY ==
--- OUTSIDE RECORDS SUMMARY | 2024-09-04 13:31 | XMS_ITS | Encounter Summary ---
Author Organization [facility] Address [address] [place] [address] Care Team Providers Care Manager Animation Name Role Phone Chu Metzger MD Primary Care Provider [phone] Encounter Details Date Type Department Care Team (Latest Contact Info) Description 07/30/2024 Lab Requisition [facility] - Main Lab [address] [facility] [place] [address] Zoraida Alcocer MD [address] [facility] [address] [place] [phone] Encounter for screening for infections with a predominantly sexual mode of transmission; Acute vaginitis Social History Tobacco Use Types Packs/Day Years Used Date Smoking Tobacco: Never Smokeless Tobacco: Never Alcohol Use Standard Drinks/Week Comments Yes 0 (1 standard drink = 0.6 oz pur e alcohol) occasional Interpersonal Safety Answer Date Record ed Physical Abuse 04/01/2024 Verbal Abuse 04/01/2024 Comments No Sex and Gender Information Value Date Recorded Sex Assigned at Female 01/02/2024 11:50 AM EST Legal Sex Female 1:55 AM EST Gender Identity Female 01/02/2024 11:50 AM EST Sexual Orientation Straight 01/02/2024 11 :50 AM EST documented as of this encounter Plan of Treatment Upcoming Encounters Date Type Department Care Team (Late st Contact Info) Description 09/09/2024 2:30 PM EDT Ancillary Procedure [facility] [address] [place] [address] 09/19/2024 1:30 PM EDT Office Visit [facility] - [facility] [address] [facility] [address] [place] [address] Sunday Reed MD [address] [place] [address] [address] [place] [address] 11/20/2024 2:00 PM EDT Office Visit Orthopedic Surgery - [place] [address] [place] [phone] Jonathan Walden DPM [address] [place] [address] 12/04/2024 3:15 PM EDT Office Visit Internal Medicine - [place] [address] [place] [phone] Chu Metzger MD [address] [place] [address] 12/12/2024 3:30 PM EDT Office Visit Vascular Surgery - [place] [address] [place] [phone] Criselda Bean PA [address] [place] [address] 03/02/2025 3:00 PM EST Office Visit Gastroenterology - [place] [address] [place] [phone] Aranza Hines PA [address] [place] [address] documented as of this encounter Procedures Procedure Name Priority Date/Time Associated Diagnosis Comments VAGINITIS PATHOGENS BY PCR Routine 07/30/2024 12:00 AM EDT Encounter for screening for infections with a predominantly sexual mode of transmission Acute vaginitis CHLAMYDIA TRACHOMATIS AND NEISSERIA GONORRHOEAE PCR Routine 07/30/2024 12:00 AM EDT Encounter for screening for infections with a predominantly sexual mode of transmission Acute vaginitis documented in this encounter Results * Vaginitis pathogens molecular study (07/30/2024 12:00 AM EDT) Trichomonas vaginalis Negative Negative 07/31/2024 8:40 AM EDT [facility] Gardnerella vaginalis Negative Negative 07/31/2024 8:40 AM EDT [facility] Margie Species Negative Negative 8:40 AM EDT [facility] Swab Vaginal structure / Unknown 07/30/2024 07/30/2024 1:15 PM EDT us Zoraida Alcocer MD LAB MICROBIOLOGY - GENER AL ORDERABLES Final Result [facility] [address] [place] [address], * Chlamydia trachomatis and Neisseria gonorrhoeae molecular study (07/30/2024 12:00 AM EDT) Neisseria gonorrhoeae PCR Negative Negative LAB MOLECULAR DIAGNOSTICS METHOD 07/31/2024 8:26 AM EDT [facility] Chlamydia trachomatis PCR Negative Negative LAB MOLECULAR DIAGNOSTICS METHOD 07/31/2024 8:26 AM EDT [facility] Swab Cervix uteri structure / Unknown 07/30/2024 07/30/2024 1:15 PM EDT us Zoraida Alcocer MD LAB MICROBIOLOGY - GENER AL ORDERABLES Final Result [facility] [address] [place] [address], [place] [phone] documented in this encounter Visit Diagnoses Diagnosis Encounter for screening for infections with a predominantly sexual mode of transmission Acute vaginitis Unspecified vaginitis and vulvovaginitis documented in this encounter Care Teams Manager Animation Relationship Specialty Start Date End Date Chu Metzger MD [address] [address] PCP - General Internal Medicine 01/05/18 documented as of this encounter
--- NOTE | 2024-09-04 13:34 | HO.NEPHOV_ITS ---
Vital Signs 09/04/24 13:35 Height 5 ft 5 in Weight 233 lb BMI 38.8 BP 124/72 Blood Pressure Location Lt brachial Position Sitting Pulse 49 L Pulse Source Pulse Oximeter Pulse Oximetry (%) 99 Oxygen Delivery Method Room Air Intake Visit Reasons: 6mon follow-up w/labs Event Manager Required: No Accompanied by: Self / Same As Patient Allergies sertraline Allergy (Unknown, Verified 09/04/24 13:47) Hallucinations HPI Comments Details: Elsie was seen in follow up for chronic kidney disease and hypertension. She monitors her BP at home and is at goal. She is known to have cardiac issues including atrial fibrillation. She takes PPI for a long time. She has not known to have any significant proteinuria. She is history of hepatitis-C which was treated long time ago. She has no in skin rashes, epistaxis, orthostasis, palpitations, paroxysmal nocturnal dyspnea, chest pain, pedal edema, froth or foam in the urine. She has no sensorineural deafness, hematuria or history of excessive nonsteroidal anti-inflammatory medication intake. She had seen Dr Nice for IgG levels. She had labs today which were pending at the time of this office visit [facility] Medical History Herpes simplex Spondylolisthesis Hyperlipidemia Cervical radiculopathy Tricuspid regurgitation Generalized osteoarthritis of multiple sites Eczema Hepatitis C Depression Hypertension Anxiety Chronic GERD Fatty liver Vertigo Acoustic neuroma Atrial fibrillation Compression fracture of third lumbar vertebra Back pain due to injury [place] (dyspnea on exertion) Dizziness HFrEF (heart failure with reduced ejection fraction) BITA (acute kidney injury) CAD (coronary artery disease) Surgical History History of appendectomy Family History Mother Diabetes Hypertension CAD (coronary artery disease) Social History Housing: Apartment Alcohol intake: current Alcohol intake frequency: holidays/special occasions only Patient Tobacco Use Status: Never used Tobacco service: No Current occupational status: unemployed Review of Systems Const All systems reviewed & are unremarkable except as noted in HPI and below Physical Exam Vital Signs: Last Vital Signs Pulse 49 L 09/04/24 13:35 BP 124/72 09/04/24 13:35 Pulse Ox 99 09/04/24 13:35 Oxygen Delivery Method Room Air 09/04/24 13:35 BMI result Body Mass Index 38.8 Const General: comfortable and no acute distress Orientation/consciousness: patient oriented x3 HEENT Head: Yes normocephalic Mouth: Normal oral and palatal mucosa present Eyes EOM: EOMs intact bilaterally Neck Neck: Yes supple Resp Auscultation: clear to auscultation bilaterally Cardio Jugular venous distension: no JVD Rate: regular rate GI Palpation (GI): Soft to palpation Auscultation: normal bowel sounds General: Yes no CVA tenderness Back/Spine/Pelvis Back: no CVA tenderness Skin General skin exam: no rashes or lesions noted Neuro General: patient oriented x3 and moves all extremities Extrem General: Yes no pedal edema Results Reviewed Nephrology Results: Hgb, (12.0-16.0) 10.9 g/dl L 05/06/24 WBC, (4.8-10.8) 6.4 X10*3/uL 05/06/24 Plt Count, (160-400) 198 X10*3/uL 05/06/24 Sodium, (135-145) 139 mmol/L 05/06/24 Potassium, (3.3-5.1) 4.4 mmol/L 05/06/24 Chloride, (96-108) 109 mmol/L H 05/06/24 Carbon Dioxide, (22-29) 25 mmol/L 05/06/24 BUN, (9-16) 17 mg/dL H 05/06/24 Creatinine, (0.5-1.4) 1.26 mg/dL 05/06/24 Calcium, (8.4-10.2) 9.1 mg/dL Δ 05/06/24 PTH Intact, (8.7-77.1) 83.0 pg/mL H 06/12/23 Renal US 07/20/23 Assessment & Plan Assessment & Plan (1) Hypertension: Code(s): I10 - Essential (primary) hypertension Category: Medical Qualifiers: Hypertension type: primary hypertension Qualified Code(s): I10 - Essential (primary) hypertension (2) Renal cyst: Code(s): N28.1 - Cyst of kidney, acquired Category: Medical (3) MGUS (monoclonal gammopathy of unknown significance): Code(s): D47.2 - Monoclonal gammopathy Category: Medical Plan Elsie has CKD for a long time. She has H/O BITA in the past when she had AFib with a RVR. Her serum creatinine has settled to baseline. ( labs pending from today). She most likely has vascular disease. Her blood pressure is currently at goal. Her Ig G levels were high and has seen Dr Nice . Renal USS showed renal cysts and there was no KIM. There is no indication for any renal biopsy now. She maintains good hydration. She avoids nonsteroidal anti- inflammatories. I did not make any medication changes at this office visit. Answered all questions Orders: Orders Electrolytes 6 Months D47.2 - Monoclonal gammopathy, I10 - Essential (primary) hypertension, N28.1 - Cyst of kidney, acquired Protein Electrophoresis, Serum Today D47.2 - Monoclonal gammopathy, I10 - Essential (primary) hypertension, N28.1 - Cyst of kidney, acquired Calcium 6 Months D47.2 - Monoclonal gammopathy, I10 - Essential (primary) hypertension, N28.1 - Cyst of kidney, acquired Blood Urea Nitrogen 6 Months D47.2 - Monoclonal gammopathy, I10 - Essential (primary) hypertension, N28.1 - Cyst of kidney, acquired Creatinine 6 Months D47.2 - Monoclonal gammopathy, I10 - Essential (primary) hypertension, N28.1 - Cyst of kidney, acquired Complete Blood Count Auto Diff Today D47.2 - Monoclonal gammopathy, I10 - Essential (primary) hypertension, N28.1 - Cyst of kidney, acquired Coding Level of Care Code Est Pt Level 4 (95904) Diagnoses Primary hypertension I10 Hypertension type: primary hypertension Renal cyst N28.1 MGUS (monoclonal gammopathy of unknown significance) D47.2
[2024-09-04 13:35] VITALS: BP 124/72; PULSE 49; O2SAT 99; BMI 38.8
== END 2024-09-04 14:06 | disposition home or self-care (01) ==
LOC: HO.HKAS 13:29
PROVIDERS: PCP Internal Medicine; Visit Provider Internal Medicine Nephrology
DX: I10 Essential (primary) hypertension (principal); N28.1 Cyst of kidney, acquired; D47.2 Monoclonal gammopathy
CPT/HCPCS: 99214